=== PATIENT | male | born 1980 | race Caucasian/White ===

== ENCOUNTER 2022-12-14 16:18 | Emergency (ER) | payer SELFPAY ==
[2022-12-14] MEDS ORDERED: Bupivacaine 0.5% 10 ML SDV INJECT ONE (17:07)
[2022-12-14] MEDS ORDERED: Penicillin G Benzathine 1,200,000 Units/2 ML Syringe IM STA (17:07)
[2022-12-14] MEDS ORDERED: Lidocaine 1% with EPINEPHrine 1:100,000 10 ML MDV INJECT ONE (17:07)
[2022-12-14] MEDS ORDERED: Bupivacaine 0.5% 10 ML SDV ONE (17:26)
== END 2022-12-14 18:05 | disposition home or self-care (01) ==
LOC: JD.ED 16:18
DX: K04.7 Periapical abscess without sinus (principal); K02.9 Dental caries, unspecified; F17.210 Nicotine dependence, cigarettes, uncomplicated; Z88.2 Allergy status to sulfonamides
CPT/HCPCS: 64400; 96372; 99282; J0561; J3490

== ENCOUNTER 2025-05-28 20:38 | Emergency (ER) | payer MEDICAID ==
[2025-05-28 21:34] LABS: BASOPHILS ABSOLUTE AUTO 0.0 K/mm3 (0.0-0.2); BASOPHILS PERCENT AUTO 0.3 % (0.0-1.0); EOSINOPHILS ABSOLUTE AUTO 0.1 K/mm3 (0.0-0.4); EOSINOPHILS PERCENT AUTO 0.9 % (0.0-6.0); IMMATURE GRAN ABSOLUTE AUTO 0.03 K/mm3 (0.00-0.05); IMMATURE GRAN PERCENT AUTO 0.3 % (0.0-0.4); LYMPHOCYTES ABSOLUTE AUTO 1.7 K/mm3 (1.0-4.8); LYMPHOCYTES PERCENT AUTO 19.6 % (24.0-44.0); MEAN PLATELET VOLUME 9.3 fl (9.4-12.4); MONOCYTES ABSOLUTE AUTO 0.7 K/mm3 (0.0-0.8); MONOCYTES PERCENT AUTO 8.3 % (0.0-8.0); NEUTROPHILS ABSOLUTE AUTO 6.2 K/mm3 (1.8-7.7); NEUTROPHILS PERCENT AUTO 70.6 % (41.0-71.0); NRBC ABSOLUTE 0.00 (0.00-0.02); NRBC PERCENT 0.0 % (0.0-0.2); PLATELET COUNT,PLT 320 K/mm3 (150-400); RED BLOOD CELL COUNT 5.22 M/mm3 (4.52-5.90); WHITE BLOOD CELL COUNT,WBC 8.81 K/mm3 (3.9-11.3)
[2025-05-28 21:48] LABS: A/G RATIO 0.8 (1-2); ALANINE AMINOTRANSFERASE,ALT 20.0 U/L (16-63); ASPARTATE AMNIOTRANSFERASE,AST 12.0 U/L (15-37); BILIRUBIN TOTAL 0.2 mg/dL (0.2-1.0); BLOOD UREA NITROGEN,BUN 22.0 mg/dL (7-18); CARBON DIOXIDE,CO2 33.0 mEq/L (21-32); CHLORIDE,CL 102.0 mEq/L (98-107); CREATININE 1.2 mg/dL (0.7-1.3); EST CRCL DRUG DOSING (CG) 89.7 mL/min; ESTIMATED GFR 77.0 mL/min (>60); GLUCOSE RANDOM 101.0 mg/dL (70-99); POTASSIUM,K 3.9 mEq/L (3.5-5.1); PROTEIN TOTAL,TP 7.2 g/dl (6.4-8.2); SODIUM,NA 139.0 mEq/L (136-145)
== END 2025-05-28 23:10 | disposition home or self-care (01) ==
LOC: JD.ED 20:38
DX: M10.9 Gout, unspecified (principal); Z88.2 Allergy status to sulfonamides
CPT/HCPCS: 36415; 73660; 80053; 84550; 85025; 99283; A9270